=== PATIENT | male | born 1970 | race Caucasian/White ===

== ENCOUNTER 2024-05-10 12:38 | Emergency (ER) | payer OTHER, SELFPAY ==
[2024-05-10 12:48] VITALS: BP 157/104
[2024-05-10 13:21] LABS: % Basophils 0.8 % (0-2); % Eosinophils 2.8 % (0-6); % Immature Granulocytes 0.3 % (0-0.5); % Lymphocytes 23.3 % (20.5-51.1); % Monocytes 4.9 % (1.7-9.3); % Neutrophils 67.9 % (42.2-75.2); Absolute Basophils 0.1 10^3/uL (0-0.2); Absolute Eosinophils 0.2 10^3/uL (0-0.7); Absolute Lymphocytes 1.5 10^3/uL (1.2-3.4); Absolute Monocytes 0.3 10^3/uL (0.1-0.6); Absolute Neutrophils 4.4 10^3/uL (1.4-6.5); Hematocrit 42.5 % (39.0-52.0); Hemoglobin 15.2 g/dL (13.0-18.0); Mean Corp Hgb Conc. 35.8 g/dL (33.0-37.0); Mean Corpuscular Hgb 28.5 pg (27.0-31.0); Mean Corpuscular Volume 79.6 fL (80.0-94.0); Mean Platelet Volume 9.4 fL (7.4-10.4); Nucleated Red Blood Cells % 0 % (-); Platelet Count 177 10^3/uL (130-400); Red Blood Cell Count 5.34 10^6/uL (4.70-6.10); Red Cell Dist. Width 13.3 % (11.5-14.5); White Blood Cell Count 6.5 10^3/uL (4.8-10.8)
[2024-05-10 13:37] LABS: ALT (SGPT) 30 U/L (0-50); AST (SGOT) 30 U/L (17-59); Albumin 4.6 g/dl (3.5-5.0); Alkaline Phosphatase 63 U/L (38-126); Blood Urea Nitrogen 13 mg/dl (9-20); Calcium 9.7 mg/dl (8.4-10.2); Carbon Dioxide 27 mmol/L (22-30); Chloride 103 mmol/L (98-107); Glucose 106 mg/dl (70-99); Potassium 4.4 mmol/L (3.5-5.1); Sodium 138 mmol/L (135-145); Total Bilirubin 0.6 mg/dl (0.2-1.3); Total Protein 7.1 g/dl (6.3-8.2); eGFR > 60.00
[2024-05-10 13:47] LABS: Troponin I < 0.012 ng/ml
--- NOTE | 2024-05-10 14:25 | ED.GENMED ---
History of Present Illness
General
Chief Complaint: Chest Pain
Source: patient and spouse
Exam Limitations: none
Time Seen by Provider: 05/10/24 13:06
Nursing documentation reviewed up to this point in time: agreed with
History of Present Illness
History of Present Illness:
53-year-old male with past medical history of hypertension hyperlipidemia, GERD presenting to the emergency department today with concerns of right-sided chest pain that started this morning along with a headache. The right-sided chest pain
described as sharp nonradiating no associated shortness of breath nausea vomiting or diarrhea. No history of diaphoresis. No additional concerns. Has seen a non destructive testing specialist in the past many years ago denies any specific diagnosis.
Review of Systems
Review of Systems
Allergies reviewed?: Yes
All Other Systems: ROS reviewed and negative except as documented in HPI and ROS
Phy Exam
Physical Exam
Physical Exam:
GENERAL: Alert , in no apparent distress
EYE: pupils equal and reactive
NECK: Supple, no significant adenopathy.
ENT: o/p clr, mmm.
CARDIAC: Regular rate and rhythm .
LUNGS: Clear breath sounds bilaterally, no acute respiratory distress, no wheezes/rales/rhonchi
ABDOMEN: Soft, without focal tenderness, no r/g, no cvat
NEUROLOGICAL: Alert and oriented, no focal neuro deficits
SKIN: Warm and dry, skin intact.
MUSCULOSKELETAL: No edema, well perfused.
PSYCH: Normal and appropriate interaction.
Scores
Heart Score for Chest Pain Patients
STEMI patient?: No
History: Slightly or Non-Suspicious
ECG: Normal
Age: >45 - <65 years
Risk Factors: 1 or 2 Risk Factors
Troponin: </= Normal Limit
Heart Score for Chest Pain Patients: 2
Heart Score Risk: 2.5% MACE over next 6 weeks
Course
Orders/Labs/Results
Orders:
Orders
05/10/24 12:40
EKG [Electrocardiogram (*1)] Urgent
Reason for Study: Chest Pain
EKG- Treatment ONCE
05/10/24 13:07
Complete Blood Count/With Diff Urgent
Comprehensive Metabolic Panel Urgent
Troponin I Urgent
05/10/24 13:28
Chest [CR Chest - 2 Views ] Urgent
Comment:
Reason For Exam: cp right sided
Abnormal Lab Results
05/10/24
13:07
MCV 79.6 L fL
(80.0-94.0)
Glucose 106 H mg/dl
(70-99)
05/10/24 13:07
05/10/24 13:07
Vital Signs
Initial and Last Documented VS:
Initial Vital Signs
Temp Pulse Resp BP Pulse Ox
98.2 F 78 15 157/104 96
05/10/24 12:48 05/10/24 12:48 05/10/24 12:48 05/10/24 12:48 05/10/24 12:48
Last Documented Vital Signs
Temp Pulse Resp BP Pulse Ox
98.2 F 70 19 136/94 97
05/10/24 12:48 05/10/24 14:45 05/10/24 14:45 05/10/24 15:00 05/10/24 15:15
MDM/Problems Addressed
MDM/Problems Addressed:
53-year-old male presenting to the emergency today with concerns of right-sided chest pain described as sharp last for few seconds at a time intermittently over the past day that occur every few hours. Denies any associated nausea vomiting
diaphoresis or shortness of breath. Arrival here blood pressure is mildly elevated otherwise vital signs are normal. Labs unremarkable troponin negative EKG nonischemic chest x-ray normal. Patient appears very low risk for ACS at this time no
risk factors or symptoms consistent with PE. Patient advised for outpatient cardiac follow-up. Return precautions given.
*Critical Care Note
Total Time (30-74mins, 75-104mins- exclusive of procedures): Not Applicable
ED Attending Note
-
Portions of this chart may have been created with voice recognition software.� Occasional wrong word or��sound alike� substitutions may have occurred due to the inherent limitations of voice recognition software.
Discharge Plan
Departure
Patient Disposition: Home (Routine Discharge)
Date of Disposition: 05/10/24
Time of Disposition: 15:14
Patient with high blood pressure during this ER visit?: No
Condition: Good
Covid-19: Not Applicable
Discharge Problem:
Chest pain
Instructions: Chest Pain DCA Follow Up
Referrals:
UNKNOWN - PT DOES,NOT KNOW [Family Provider] -
Activity Restrictions/Additional Instructions:
You came to the emergency department today with concerns of chest discomfort. Here you had a reassuring assessment. Please follow closely with cardiology. Return to the emergency department for any worsening, new or concerning symptoms.
Interventions
Interventions:
*Risk Screen - Suicide Last Done: 05/10/24 12:48
*General Assessment Last Done: 05/10/24 12:48
*Neglect/Abuse Screening Last Done: 05/10/24 14:20
ED- Fall Risk Assessment Last Done: 05/10/24 15:25
*ED COVID-19 Vaccine History Last Done: 05/10/24 15:25
*Nursing Disposition Last Done: 05/10/24 15:25
ED- Cardiac Assessment Last Done: 05/10/24 14:20
Discharge Date and Time
Discharge Date/Time: 05/10/24 15:28
Print Language: [id number]
[2024-05-10 14:41] VITALS: BP 135/97
[2024-05-10 15:00] VITALS: BP 136/94
== END 2024-05-10 15:28 | disposition home or self-care (01) ==
LOC: EMR 12:38
PROVIDERS: Emergency Medicine; EMERGENCY PHYSICIAN Emergency Medicine
DX: R07.89 Other chest pain (principal); R51.9 Headache, unspecified; I10 Essential (primary) hypertension; E78.5 Hyperlipidemia, unspecified; K21.9 Gastro-esophageal reflux disease without esophagitis; H54.8 Legal blindness, as defined in USA
CPT/HCPCS: 99283; 71046; 80053; 84484; 85025; 93005